=== PATIENT | male | born 1990 | race African-American/Black ===

== ENCOUNTER 2019-10-22 09:39 | Emergency (ER) | payer MEDICAID, OTHER, SELFPAY ==
[~2019-10-22] VITALS: Ht 175.3 cm; Wt 90.9 kg
[2019-10-22] MEDS ORDERED: IBUPROFEN 800 MG TAB PO ONE (11:30)
[2019-10-22] MEDS ORDERED: ACETAMINOPHEN 500 MG TAB PO ONE (11:30)
[2019-10-22 11:40] VITALS: BP 134/81
--- NOTE | 2019-11-19 09:32 | REP ---
RIGHT ANKLE SERIES CLINICAL: Trauma/injury. TECHNIQUE: AP, lateral, bilateral oblique views of the right ankle. FINDINGS: No acute fracture or dislocation. Skeletal structures and joint spaces are intact. Ankle mortise intact. Soft tissues are normal. No subcutaneous emphysema or foreign body. IMPRESSION: No acute fracture or dislocation. MTDD
== END 2019-10-22 11:40 | disposition home or self-care (01) ==
LOC: M ED 09:39
DX: S93.401A Sprain of unspecified ligament of right ankle, initial encounter (principal); W18.40XA Slipping, tripping and stumbling without falling, unspecified, initial encounter; Y93.E6 Activity, residential relocation; Y92.9 Unspecified place or not applicable; Y99.9 Unspecified external cause status

== ENCOUNTER 2019-11-29 11:18 | Emergency (ER) | payer OTHER, SELFPAY ==
[~2019-11-29] VITALS: Ht 175.3 cm; Wt 97.7 kg
[2019-11-29] MEDS ORDERED: NS 1,000 ML IV ONE ×2 (12:00→13:00)
[2019-11-29] MEDS ORDERED: ONDANSETRON 4MG/2ML VIAL IV ONE (12:00)
[2019-11-29 12:07] LABS: BASO % 0.1 % (0.0-1.0); EOS % 0.1 % (0.0-3.0); HEMOGLOBIN 14.9 g/dl (13.5-17.5); LYMPH # 1.3 10^3/uL (1.5-5.0); LYMPH % 8.1 % (24.0-44.0); MEAN CORPUSCULAR HEMOGLOBIN 30.3 pg (27.0-33.0); MEAN CORPUSCULAR HGB CONC 33.9 g/dl (32.0-36.5); MEAN CORPUSCULAR VOLUME 89.6 fl (80.0-96.0); MONO # 0.5 10^3/uL (0.0-0.8); MONO % 3.3 % (0.0-5.0); NEUTROPHILS # 13.6 10^3/uL (1.5-8.5); NEUTROPHILS % 87.9 % (36.0-66.0); PLATELET COUNT, AUTOMATED 286 10^3/uL (150-450); RED BLOOD COUNT 4.91 10^6/uL (4.30-6.10); WHITE BLOOD COUNT 15.5 10^3/uL (4.0-10.0)
[2019-11-29] MEDS ORDERED: ISOVUE-370 76% 100ML VIAL As Ordered ONE (12:23)
[2019-11-29 12:35] LABS: ALBUMIN 4.8 GM/DL (3.2-5.2); BILIRUBIN,DIRECT 0.2 MG/DL (0.0-0.2); TOTAL PROTEIN 8.7 GM/DL (6.4-8.2)
--- NOTE | 2019-11-29 12:58 | REPVR ---
PROCEDURE INFORMATION: Exam: CT Abdomen And Pelvis With Contrast Exam date and time: 11/29/2019 12:19 PM Age: 29 years old Clinical indication: Nausea and vomiting and other: Diarrhea; Abdominal pain; Additional info: Lower abd pain, n/v/d TECHNIQUE: Imaging protocol: Computed tomography of the abdomen and pelvis with intravenous contrast. Radiation optimization: All CT scans at this facility use at least one of these dose optimization techniques: automated exposure control; mA and/or kV adjustment per patient size (includes targeted exams where dose is matched to clinical indication); or iterative reconstruction. Contrast material: ISOVUE 370; Contrast volume: 100 ml; Contrast route: INTRAVENOUS (IV); COMPARISON: No relevant prior studies available. FINDINGS: Liver: Normal. No mass. Gallbladder and bile ducts: Normal. No calcified stones. No ductal dilation. Pancreas: Normal. No ductal dilation. Spleen: Normal. No splenomegaly. Adrenals: Normal. No mass. Kidneys and ureters: Normal. No hydronephrosis. Stomach and bowel: Unremarkable. No obstruction. No mucosal thickening. Appendix: No evidence of appendicitis. Intraperitoneal space: Unremarkable. No free air. No significant fluid collection. Vasculature: Unremarkable. No abdominal aortic aneurysm. Lymph nodes: Unremarkable. No enlarged lymph nodes. Urinary bladder: Unremarkable as visualized. Reproductive: Unremarkable as visualized. Bones/joints: Unremarkable. No acute fracture. Soft tissues: Unremarkable. IMPRESSION: No acute findings. Electronically signed by: Brandy Sampson On 11/29/2019 12:58:12 PM
[2019-11-29] MEDS ORDERED: KETOROLAC 30 MG/ML 1ML VIAL IV ONE (13:00)
[2019-11-29] MEDS ORDERED: KCL 10MEQ/100ML SWI (KRUN) 10 MEQ in IV 1 EA IV ONE (13:00)
[2019-11-29] MEDS ORDERED: METOCLOPRAMIDE INJ 10MG/2ML VIAL (J2765 PER 1) IV ONE (14:45)
[2019-11-29] MEDS ORDERED: DICYCLOMINE INJ 20MG/2ML (J0500) IM ONE (15:45)
[2019-11-29 16:10] VITALS: BP 124/65
[2019-11-29] MEDS ORDERED: ONDA4TAB6 PO (16:35)
== END 2019-11-29 16:39 | disposition home or self-care (01) ==
LOC: M ED 11:18
DX: R11.2 Nausea with vomiting, unspecified (principal); R19.7 Diarrhea, unspecified; R10.9 Unspecified abdominal pain; R51.9 Headache, unspecified
CPT/HCPCS: 74177; 80047; 80076; 83605; 83690; 85025; 96361; 96365; 96372; 96375; 99284; J0500; J1885; J2405; J2765; Q9967

== ENCOUNTER 2020-11-16 10:42 | Inpatient (IN) | payer MEDICAID ==
[~2020-11-16] VITALS: Ht 175.3 cm; Wt 93.1 kg
[~2020-11-16 10:42] MED LIST: ONDA4TAB6 PO
[2020-11-16] MEDS ORDERED: NS 1,000 ML IV ONE ×2 (11:20→14:00)
[2020-11-16] MEDS ORDERED: ONDANSETRON 4MG/2ML VIAL IV ONE (11:20)
[2020-11-16 11:53] LABS: BASO % 0.2 % (0.0-1.0); HEMOGLOBIN 13.8 g/dl (13.5-17.5); LYMPH # 1.3 10^3/uL (1.5-5.0); LYMPH % 7.6 % (24.0-44.0); MEAN CORPUSCULAR HEMOGLOBIN 30.9 pg (27.0-33.0); MEAN CORPUSCULAR HGB CONC 33.7 g/dl (32.0-36.5); MEAN CORPUSCULAR VOLUME 91.7 fl (80.0-96.0); MONO # 0.5 10^3/uL (0.0-0.8); MONO % 3.1 % (2.0-8.0); NEUTROPHILS # 15.1 10^3/uL (1.5-8.5); NEUTROPHILS % 88.7 % (36.0-66.0); PLATELET COUNT, AUTOMATED 225 10^3/uL (150-450); RED BLOOD COUNT 4.47 10^6/uL (4.30-6.10)
[2020-11-16 12:20] LABS: ALBUMIN 4.2 GM/DL (3.2-5.2); ALT/SGPT 23 U/L (12-78); BILIRUBIN,DIRECT 0.2 MG/DL (0.0-0.2); BILIRUBIN,TOTAL 0.8 MG/DL (0.2-1.0); BLOOD UREA NITROGEN 14 MG/DL (7-18); CALCIUM LEVEL 9.2 MG/DL (8.5-10.1); CARBON DIOXIDE LEVEL 27 MEQ/L (21-32); CHLORIDE LEVEL 101 MEQ/L (98-107); CREATININE FOR GFR 1.09 MG/DL (0.70-1.30); GLOMERULAR FILTRATION RATE > 60.0 (>60); GLUCOSE, FASTING 115 MG/DL (70-100); LIPASE 66 U/L (73-393); POTASSIUM SERUM 3.5 MEQ/L (3.5-5.1); SODIUM LEVEL 136 MEQ/L (136-145); TOTAL PROTEIN 7.4 GM/DL (6.4-8.2)
[2020-11-16 12:29] LABS: RSV AMPLIFICATION NEGATIVE (NEGATIVE)
[2020-11-16] MEDS ORDERED: ISOVUE-370 76% 100ML VIAL As Ordered ONE (12:31)
--- NOTE | 2020-11-16 12:53 | REP ---
INDICATION: diffuse abd pain, fever, vomiting. COMPARISON: 11/29/2019 TECHNIQUE: Standard helical technique after the intravenous administration of 100 cc Isovue 370 FINDINGS: The lung bases are clear and unchanged. The liver, gallbladder, spleen, pancreas, adrenal glands, and kidneys are within normal limits. The abdominal aorta and para-aortic regions are within normal limits. There is no evidence of free fluid or free air. There is no evidence of a mass or adenopathy. There is evidence of spiking of the mesentery involving a loop of small bowel in the right upper quadrant. This has developed since the last exam. Bone window technique throughout the examination shows no significant change in appearance of the osseous structures. IMPRESSION: Findings involving a loop of small bowel in the right upper quadrant as described above. This could be secondary to inflammatory bowel disease such as Crohn's disease. This needs to be correlated clinically with appropriate follow-up. <Electronically signed by Richard Ramírez > 11/16/20 [id number]
--- NOTE | 2020-11-16 13:23 | REP ---
INDICATION: cough, fever, n/v. COMPARISON: None. TECHNIQUE: PA and lateral FINDINGS: The superior mediastinal structures are midline. The cardiac silhouette is unremarkable in size, shape, and position. The diaphragmatic surfaces of the lungs are regular, and the costophrenic angles are clear. The pulmonary worthy are clear. The imaged osseous structures are intact. IMPRESSION: There is no acute cardiopulmonary disease. <Electronically signed by Richard Ramírez > 11/16/20 [id number]
[2020-11-16] MEDS ORDERED: DICYCLOMINE INJ 20MG/2ML (J0500) IM ONE (14:25)
[2020-11-16 14:57] LABS: AMPHETAMINES LEVEL URINE NEGATIVE (NEGATIVE); BARBITURATES URINE NEGATIVE (NEGATIVE); BENZODIAZEPINES URINE NEGATIVE (NEGATIVE); CANNABINOIDS URINE POSITIVE (NEGATIVE); COCAINE METABOLITE URINE NEGATIVE (NEGATIVE); METHADONE URINE NEGATIVE (NEGATIVE); OPIATES URINE NEGATIVE (NEGATIVE); PHENCYCLIDINE URINE NEGATIVE (NEGATIVE)
[2020-11-16 16:08] LABS: C REACTIVE PROTEIN QUANTITATIV 0.45 MG/DL (0.00-0.30)
[2020-11-16] MEDS ORDERED: HOME MED LIST COMPLETE! XX SCH (16:10)
[2020-11-16 16:24] LABS: ERYTHROCYTE SEDIMENTATION RATE 7 mm/hr (0-15)
[2020-11-16 17:30] VITALS: BP 157/93
--- NOTE | 2020-11-16 17:56 | HPEPDOC ---
General Date of Admission Nov 16, 2020 at 16:25 Date of Service: Nov 16, 2020 Chief Complaint The patient is a 30-year-old male admitted with a reason for visit of Intractable Abd Pain,Nausea Vomiting And Diarrhea. History of Present Illness Mr. Man is a 30 year old male with marijuana use who presents with intractable nausea, vomiting, and diarrhea. Initially began 4 days ago, it started with nausea and abdominal pain. About 2 days ago, he had fever, nausea with vomiting, persistent abdominal cramping, soft diarrhea without blood. He has not been able to keep any food or liquid's down. He has about 2 episodes of diarrhea in a day. Denies sick contacts, recent antibiotics, or hospital izations. He had this happened before in the past, the last episode a few months ago. Patient admits to marijuana use. On admission, patient has been afebrile. Blood pressure stable and patient is not tachycardic. Patient does have leukocytosis of 17 and lactic acid of 2.1. There is no renal dysfunction. CT abd/pelvis with IV contrast suggest possible inflammatory bowel disease with involvement of the right upper quadrant small bowel. ESR 7 and CRP 0.45. Patient will be admitted for intractable nausea/vomiting and abdominal pain with diarrhea. Home Medications No Active Prescriptions or Reported Meds Allergies Coded Allergies: No Known Allergies (Unverified , 10/22/19) Past Medical History Medical History Denies past medical history Surgical History Denies past surgical history Family History Father has hypertension Social History * Smoker: former Smoker Alcohol: Denies Drugs: marijuana A-FIB/CHADSVASC A-FIB History Current/History of A-Fib/PAF?: No Review of Systems Constitutional: Reports: Fever, Malaise, Fatigue, Other (cold sweats) Eyes: Denies: Vision change ENT: Denies: Sore Throat Skin: Denies: Rash Pulmonary: Denies: Cough Cardiovascular: Denies: Chest Pain Gastrointestinal: Reports: Nausea, Vomiting, Abdominal Pain, Diarrhea Genitourinary: Denies: Dysuria Hematologic: Denies: Bruising Neurological: Denies: Numbness Physical Examination General Exam: Positive: Alert, Cooperative, Mild Distress Eye Exam: Negative: Sclera icteric ENT Exam: Positive: Atraumatic Neck Exam: Positive: Supple Chest Exam: Positive: Clear to auscultation Heart Exam: Positive: Rate Normal, Regular Rhythm Abdomen Exam: Positive: Normal bowel sounds, Soft, Tenderness Extremity Exam: Negative: Edema Neuro Exam: Positive: Normal Speech, Cranial Nerves 3-12 NL Psych Exam: Positive: Mental status NL, Mood NL Vital Signs Vital Signs Date Time Temp Pulse Resp B/P (MAP) Pulse Ox O2 Delivery O2 Flow Rate FiO2 11/16/20 15:45 98.2 71 18 146/90 (108) 99 Room Air Laboratory Data Labs 24H Laboratory Tests 2 11/16/20 11:28: Immature Granulocyte % (Auto) 0.4, Neutrophils (%) (Auto) 88.7H, Lymphocytes (%) (Auto) 7.6L, Monocytes (%) (Auto) 3.1, Eosinophils (%) (Auto) 0.0, Basophils (%) (Auto) 0.2, Neutrophils # (Auto) 15.1H, Lymphocytes # (Auto) 1.3L, Monocytes # (Auto) 0.5, Eosinophils # (Auto) 0.0, Basophils # (Auto) 0.0, Nucleated Red Blood Cells % (auto) 0.0, Erythrocyte Sedimentation Rate 7, Anion Gap 8, Glomerular Filtration Rate > 60.0, Calcium Level 9.2, Total Bilirubin 0.8, Direct Bilirubin 0.2, Aspartate Amino Transf (AST/SGOT) 19, Alanine Ami notransferase (ALT/SGPT) 23, Alkaline Phosphatase 91, C-Reactive Protein, Quantitative 0.45H, Total Protein 7.4, Albumin 4.2, Albumin/Globulin Ratio 1.3, Lipase 66L, Coronavirus (COVID-19)(PCR) NEGATIVE, Influenza Type A (RT-PCR) NEGATIVE, Influenza Type B (RT-PCR) NEGATIVE, Respiratory Syncytial Virus (PCR) NEGATIVE 11/16/20 12:46: Lactic Acid Level 2.1*H 11/16/20 13:39: Urine Color YELLOW, Urine Appearance HAZY, Urine pH 9.0, Urine Specific [place] 1.048, Urine Protein 1+H, Urine Glucose (UA) NEGATIVE, Urine Ketones 2+H, Urine Blood NEGATIVE, Urine Nitrite NEGATIVE, Urine Bilirubin NEGATIVE, Urine Urobilinogen 0.2, Urine Leukocyte Esterase NEGATIVE, Urine WBC (Auto) 0, Urine RBC (Auto) 2, Urine Hyaline Casts (Auto) 0, Urine Bacteria (Auto) NEGATIVE, Urine Squamous Epithelial Cells 0, Urine Calcium Oxalate Cryst (Auto) SMALL, Urine Amorphous Sediment SMALLH, Urine Mucus (Auto) SMALL, Urine Sperm (Auto) , Urine Opiates Screen NEGATIVE, Urine Methadone Screen NEGATIVE, Urine Barbiturates Screen NEGATIVE, Urine Phencyclidine Screen NEGATIVE, Urine Amphetamines Screen NEGATIVE, Urine Benzodiazepines Screen NEGATIVE, Urine Cocaine Metabolite Screen NEGATIVE, Urine Cannabinoids Screen POSITIVEH CBC/BMP Laboratory Tests 11/16/20 11:28 Microbiology Microbiology 11/16/20 Blood Culture, Received Pending 11/16/20 Blood Culture, Received Pending Assessment/Plan Mr. Man is a 30 year old male with marijuana use who presents with intractable nausea, vomiting, and diarrhea. Differential include infectious colitis vs cannabis hyperemesis syndrome vs Crohn's disease. Will order GI panel to look for infectious causes. Will empirically start patient on Zosyn. Will order calprotectin, stool polys, vitamin B12, vitamin D, and iron to work Crohn's disease. Otherwise, provider supportive care with IVF, Bentyl, and antiemetics. Plan / VTE VTE Prophylaxis Ordered?: Yes Plan Plan 1. Intractable nausea vomiting Patient does use marijuana. U tox is positive for cannabis Possibly cannabis hyperemesis syndrome Supportive care Clear liquid diet and IV fluids As needed Zofran IV Protonix 2. Abdominal cramping and diarrhea We will evaluate with GI panel, calprotectin, and stool polys Possibly infectious Empirically started on Zosyn day 1 Bentyl to help with abdominal cramping 3. Marijuana use disorder Supportive care 4. Leukocytosis May be reactive to vomiting versus intra-abdominal infectious source Patient started on antibiotics Monitor CBC 5. DVT prophylaxis SCDs and teds Disposition: Pending clinical improvement SUDHIR DUGAN DO Nov 16, 2020 17:56
[2020-11-16] MEDS: NS 1,000 ML IV SCH (18:43)
[2020-11-16] MEDS: PANTOPRAZOLE 40MG VIAL (C9113 PER 1) IV SCH (18:43)
[2020-11-16] MEDS: PIPERACILLIN/TAZOBACTAM SOD 3.375 GM in D5W MINI-BAG PLUS 50 ML IV SCH ×2 (18:43→23:57)
--- NOTE | 2020-11-16 19:49 | REPVR ---
PROCEDURE INFORMATION: Exam: CT Head Without Contrast Exam date and time: 11/16/2020 6:54 PM Age: 30 years old Clinical indication: Pain; Dizziness; Headache; Additional info: Headache, dizziness, vomiting TECHNIQUE: Imaging protocol: Computed tomography of the head without contrast. Radiation optimization: All CT scans at this facility use at least one of these dose optimization techniques: automated exposure control; mA and/or kV adjustment per patient size (includes targeted exams where dose is matched to clinical indication); or iterative reconstruction. COMPARISON: CT Head without contrast 02/19/2014 1:43 PM FINDINGS: Brain: There is no evidence of intracranial bleed. The de la paz-white differentiation appears preserved. Cerebral ventricles: Normal-appearing ventricles. Paranasal sinuses: Sure there is a 1 cm mucous retention cyst right sphenoid sinus. Paranasal sinuses are otherwise clear. Mastoid air cells: Clear mastoid air cells. There is no evidence of intracranial bleed. Orbital cavity: The orbits appear symmetric. Bones/joints: Unremarkable. No acute fracture. Soft tissues: Unremarkable. IMPRESSION: Normal appearing CT scan of the brain. Electronically signed by: Sumit Wiggins On 11/16/2020 19:49:23 PM
[2020-11-16] MEDS: DICYCLOMINE 10 MG CAP PO SCH ×2 (20:43→23:57)
[2020-11-16] MEDS: ONDANSETRON 4MG/2ML VIAL IV PRN (20:47)
[2020-11-16 22:00] VITALS: BP 153/80
[2020-11-17] MEDS: DICYCLOMINE 10 MG CAP PO SCH ×4 (05:35→23:23)
[2020-11-17] MEDS: PIPERACILLIN/TAZOBACTAM SOD 3.375 GM in D5W MINI-BAG PLUS 50 ML IV SCH ×4 (05:35→23:23)
[2020-11-17 05:38] VITALS: BP 155/92
[2020-11-17] MEDS: NS 1,000 ML IV SCH ×2 (08:41→23:23)
--- NOTE | 2020-11-17 10:04 | IPNPDOC ---
Subjective Date Seen The patient was seen on 11/17/20. Subjective Chief Complaint/HPI Mr. Man is a 30 year old male with marijuana use who presents with intractable nausea, vomiting, and diarrhea. Yesterday patient received Zofran and it has helped. This morning, he tells me he is able to keep small amounts of liquid down. Still has nausea. No bowel movement since yesterday. Objective Physical Examination General Exam: Positive: Alert, Cooperative Eye Exam: Negative: Sclera icteric ENT Exam: Positive: Atraumatic Neck Exam: Positive: Supple Chest Exam: Positive: Clear to auscultation Heart Exam: Positive: Rate Normal, Regular Rhythm Abdomen Exam: Positive: Normal bowel sounds, Soft, Tenderness Extremity Exam: Negative: Edema Neuro Exam: Positive: Normal Speech, Cranial Nerves 3-12 NL Psych Exam: Positive: Mental status NL, Mood NL Assessment /Plan Assessment Mr. Man is a 30 year old male with marijuana use who presents with in tractable nausea, vomiting, and diarrhea. Differential include infectious colitis vs cannabis hyperemesis syndrome vs Crohn's disease. Will order GI panel to look for infectious causes. Will empirically start patient on Zosyn. Will order calprotectin, stool polys, vitamin B12, vitamin D, and iron to work Crohn's disease. Otherwise, provider supportive care with IVF, Bentyl, and antiemetics. Plan/VTE VTE Prophylaxis Ordered?: Yes Plan 1. Intractable nausea vomiting Patient does use marijuana. U tox is positive for cannabis Possibly cannabis hyperemesis syndrome Supportive care Clear liquid diet and IV fluids As needed Zofran IV Protonix 2. Abdominal cramping and diarrhea We will evaluate with GI panel, calprotectin, and stool polys Possibly infectious Empirically started on Zosyn day 2 Bentyl to help with abdominal cramping 3. Marijuana use disorder Supportive care 4. Leukocytosis May be reactive to vomiting versus intra-abdominal infectious source Patient started on antibiotics Monitor CBC 5. DVT prophylaxis SCDs and teds Disposition: Pending clinical improvement VS, I&O, 24H, Fishbone Vital Signs/I&O Vital Signs Date Time Temp Pulse Resp B/P (MAP) Pulse Ox O2 Delivery O2 Flow Rate FiO2 11/17/20 05:38 99.0 57 18 155/92 (113) 98 Room Air I&O- Last 24 Hours up to 6 AM 11/17/20 06:00 Intake Total 2720 ml Output Total 400 ml Balance 2320 ml Laboratory Data 24H LABS Laboratory Tests 2 11/16/20 11:28: Immature Granulocyte % (Auto) 0.4, Neutrophils (%) (Auto) 88.7H, Lymphocytes (%) (Auto) 7.6L, Monocytes (%) (Auto) 3.1, Eosinophils (%) (Auto) 0.0, Basophils (%) (Auto) 0.2, Neutrophils # (Auto) 15.1H, Lymphocytes # (Auto) 1.3L, Monocytes # (Auto) 0.5, Eosinophils # (Auto) 0.0, Basophils # (Auto) 0.0, Nucleated Red Blood Cells % (auto) 0.0, Erythrocyte Sedimentation Rate 7, Anion Gap 8, Glomerular Filtration Rate > 60.0, Calcium Level 9.2, Total Bilirubin 0.8, Direct Bilirubin 0.2, Aspartate Amino Transf (AST/SGOT) 19, Alanine Lopez otransferase (ALT/SGPT) 23, Alkaline Phosphatase 91, C-Reactive Protein, Quantitative 0.45H, Total Protein 7.4, Albumin 4.2, Albumin/Globulin Ratio 1.3, Lipase 66L, Coronavirus (COVID-19)(PCR) NEGATIVE, Influenza Type A (RT-PCR) NEGATIVE, Influenza Type B (RT-PCR) NEGATIVE, Respiratory Syncytial Virus (PCR) NEGATIVE 11/16/20 12:46: Lactic Acid Level 2.1*H 11/16/20 13:39: Urine Color YELLOW, Urine Appearance HAZY, Urine pH 9.0, Urine Specific [place] 1.048, Urine Protein 1+H, Urine Glucose (UA) NEGATIVE, Urine Ketones 2+H, Urine Blood NEGATIVE, Urine Nitrite NEGATIVE, Urine Bilirubin NEGATIVE, Urine Urobilinogen 0.2, Urine Leukocyte Esterase NEGATIVE, Urine WBC (Auto) 0, Urine RBC (Auto) 2, Urine Hyaline Casts (Auto) 0, Urine Bacteria (Auto) NEGATIVE, Urine Squamous Epithelial Cells 0, Urine Calcium Oxalate Cryst (Auto) SMALL, Urine Amorphous Sediment SMALLH, Urine Mucus (Auto) SMALL, Urine Sperm (Auto) , Urine Opiates Screen NEGATIVE, Urine Methadone Screen NEGATIVE, Urine Barbiturates Screen NEGATIVE, Urine Phencyclidine Screen NEGATIVE, Urine Amphetamines Screen NEGATIVE, Urine Benzodiazepines Screen NEGATIVE, Urine Cocaine Metabolite Screen NEGATIVE, Urine Cannabinoids Screen POSITIVEH 11/16/20 18:48: Lactic Acid Followup at 4 Hours 2.0, Iron Level 95 CBC/BMP Laboratory Tests 11/16/20 11:28 Microbiology Microbiology 11/16/20 Blood Culture, Received Pending 11/16/20 Blood Culture, Received Pending SUDHIR DUGAN DO Nov 17, 2020 10:04
[2020-11-17 11:10] LABS: TOTAL 25(OH) VITAMIN D 21.4 NG/ML (30.0-100.0)
[2020-11-17 11:19] LABS: HEMATOCRIT 39.2 % (42.0-52.0); HEMOGLOBIN 13.6 g/dl (13.5-17.5); MEAN CORPUSCULAR HGB CONC 34.7 g/dl (32.0-36.5); MEAN CORPUSCULAR VOLUME 89.3 fl (80.0-96.0); PLATELET COUNT, AUTOMATED 227 10^3/uL (150-450); RED BLOOD COUNT 4.39 10^6/uL (4.30-6.10); WHITE BLOOD COUNT 14.4 10^3/uL (4.0-10.0)
[2020-11-17 12:27] LABS: BLOOD UREA NITROGEN 9 MG/DL (7-18); CALCIUM LEVEL 9.1 MG/DL (8.5-10.1); CARBON DIOXIDE LEVEL 21 MEQ/L (21-32); CHLORIDE LEVEL 105 MEQ/L (98-107); CREATININE FOR GFR 1.11 MG/DL (0.70-1.30); GLOMERULAR FILTRATION RATE > 60.0 (>60); GLUCOSE, FASTING 101 MG/DL (70-100); SODIUM LEVEL 138 MEQ/L (136-145)
[2020-11-17] MEDS: ONDANSETRON 4MG/2ML VIAL IV PRN ×2 (13:11→23:28)
[2020-11-17 14:00] VITALS: BP 152/93
[2020-11-17] MEDS: PANTOPRAZOLE 40MG VIAL (C9113 PER 1) IV SCH (17:34)
[2020-11-17] MEDS: PROMETHAZINE INJ 25 MG/ML VIAL (J2550) IV PRN (18:59)
[2020-11-17 20:35] VITALS: BP 154/80
[2020-11-18] MEDS: PROMETHAZINE INJ 25 MG/ML VIAL (J2550) IV PRN (03:32)
[2020-11-18 05:59] VITALS: BP_SYST 155; BP_SYST 166; BP_DIAS 89; BP_DIAS 97
[2020-11-18 06:06] LABS: HEMATOCRIT 38.1 % (42.0-52.0); HEMOGLOBIN 12.8 g/dl (13.5-17.5); MEAN CORPUSCULAR HEMOGLOBIN 30.8 pg (27.0-33.0); MEAN CORPUSCULAR HGB CONC 33.6 g/dl (32.0-36.5); MEAN CORPUSCULAR VOLUME 91.6 fl (80.0-96.0); PLATELET COUNT, AUTOMATED 209 10^3/uL (150-450); RED BLOOD COUNT 4.16 10^6/uL (4.30-6.10); WHITE BLOOD COUNT 9.8 10^3/uL (4.0-10.0)
[2020-11-18] MEDS: PIPERACILLIN/TAZOBACTAM SOD 3.375 GM in D5W MINI-BAG PLUS 50 ML IV SCH ×3 (06:06→18:03)
[2020-11-18] MEDS: DICYCLOMINE 10 MG CAP PO SCH ×4 (06:06→23:32)
[2020-11-18 06:37] LABS: BLOOD UREA NITROGEN 9 MG/DL (7-18); CALCIUM LEVEL 8.5 MG/DL (8.5-10.1); CARBON DIOXIDE LEVEL 26 MEQ/L (21-32); CHLORIDE LEVEL 106 MEQ/L (98-107); CREATININE FOR GFR 1.05 MG/DL (0.70-1.30); GLOMERULAR FILTRATION RATE > 60.0 (>60); GLUCOSE, FASTING 96 MG/DL (70-100); POTASSIUM SERUM 3.4 MEQ/L (3.5-5.1); SODIUM LEVEL 138 MEQ/L (136-145)
[2020-11-18] MEDS: METOCLOPRAMIDE INJ 10MG/2ML VIAL (J2765 PER 1) IV SCH ×4 (07:30→20:16)
[2020-11-18] MEDS: ONDANSETRON 4MG/2ML VIAL IV PRN (08:16)
[2020-11-18] MEDS ORDERED: NS 1,000 ML IV ONE (08:40)
[2020-11-18] MEDS ORDERED: PROMETHAZINE INJ 25 MG/ML VIAL (J2550) IV SCH (08:40)
[2020-11-18] MEDS ORDERED: diphenhydrAMINE 50MG/ML VIAL (J1200) IV PRN (08:50)
[2020-11-18] MEDS: KETOROLAC 30 MG/ML 1ML VIAL IV SCH ×3 (09:55→20:16)
[2020-11-18] MEDS ORDERED: NEULUMEX 0.1% SUSPENSION 450ML BOTTLE (FORMERLY VOLUMEN) As Ordered ONE (11:36)
[2020-11-18] MEDS ORDERED: GLUCAGON INJ 1MG VIAL As Ordered ONE (12:00)
[2020-11-18] MEDS ORDERED: ISOVUE-370 76% 100ML VIAL As Ordered ONE (12:43)
--- NOTE | 2020-11-18 13:14 | REP ---
INDICATION: abd pain diarrhea small bowel spike in mesentery on ct abd.. COMPARISON: Comparison CT study November 16, 2020. TECHNIQUE: The patient ingested oral Volumen for PO contrast per protocol. 0.6 mg of intravenous glucagon is administered. 100 ml of Isovue 370 is given intravenously for intravenous contrast. Helical scanning is acquired. Arterial phase and delayed phase imaging was acquired. Thick slab coronal and sagittal MIP images are generated. In addition coronal and sagittal multiplanar re-formation images are generated and reviewed along with axial images. FINDINGS: Preliminary digital cd mixer helper radiograph is unremarkable. The liver and the spleen are normal in size homogeneous in texture. No adrenal lesion is seen. No abnormality is noted in the pancreas or the gallbladder. No retroperitoneal mass or adenopathy is seen. The kidneys enhance symmetrically and are morphologically intact. Normal appendix is seen in the right lower quadrant. There is good luminal labeling with oral volume in in the small intestine. There is no evidence of mural thickening or hyperenhancement in the small bowel loops to suggest inflammatory enteritis. No evidence of adenopathy. The mesenteric streakiness described on the recent CT study is again seen mild in degree. Somewhat improved. No free fluid is seen. Delayed acquisition images show no evidence of bowel wall abnormality. There is no evidence of free air or abnormal fluid collection. No bony destructive lesion is seen. SI joints are intact without evidence of ankylosis or erosive change. IMPRESSION: The recently noted mesenteric fat streakiness is again seen, mild in degree and somewhat improved. No other evidence to suggest inflammatory bowel disease. Otherwise negative. <Electronically signed by Elmer Graf > 11/18/20 [id number]
[2020-11-18 14:00] VITALS: BP 146/88
[2020-11-18] MEDS: NS 1,000 ML IV SCH ×3 (16:35→23:32)
--- NOTE | 2020-11-18 17:17 | IPN ---
PROGRESS NOTE DATE: 11/18/2020 SUBJECTIVE: Patient denies fever or chills. Complains of bilateral lower quadrant pain left greater than the right. Patient denies any joint pains, muscle aches, mouth ulcers. No prior history of inflammatory bowel disease, Crohn's or ulcerative colitis. Denies any bright red blood per rectum, melena, black tarry stools. Patient has had 1 episode of diarrhea. GI panel is canceled. Patient had 100.4 temperature yesterday at 20:35. OBJECTIVE: Current temperature 99, T-max 100.4, pulse 60, respiratory rate 18 blood pressure 155/89, 99% on room air. General: Awake, alert, oriented to person, place and time, answering questions appropriately. Lungs: Clear to auscultation, no wheezes, rhonchi or rales. Heart: S1 and S2 sinus rhythm. Abdomen: Soft, tender in the bilateral lower quadrants. No guarding or rebound. Positive bowel sounds. No hepatosplenomegaly. Extremities: No cyanosis, clubbing or pitting edema. LABORATORY DATA: Laboratory data, microbiology reviewed. IMAGING STUDIES: Reviewed. ASSESSMENT: This is a 30-year-old male admitted on 11/16/2020 with intractable nausea, vomiting, abdominal pain with prior history of marijuana use, unable to keep liquids down with 2 episodes of diarrhea. Patient had CT abdomen and pelvis with possible inflammatory bowel disease in the right upper quadrant. Sedimentation rate and CRP were checked. IMPRESSIONS/PLAN: 1. Intractable nausea, vomiting, abdominal pain and cramping: GI panel is pending. Empirically placed on Zosyn day number 2, on a liquid diet, I.V. fluids, antiemetics, Toradol and Protonix. 2. Marijuana use with possible cannabis hyperemesis syndrome. 3. Leukocytosis: May be reactive. Currently on Zosyn empirically. Awaiting GI panel and IBD serology. late entry addendum: enteropathogenic ecoli in GI panel: -dc abx -supportive care, supplement electrolytes and continue ivfluids. MTDD
[2020-11-18] MEDS: PANTOPRAZOLE 40MG VIAL (C9113 PER 1) IV SCH (18:03)
[2020-11-18] MEDS ORDERED: POTASSIUM CHLORIDE 10MEQ SR TABLET PO ONE (19:15)
[2020-11-18 22:00] VITALS: BP 149/89
[2020-11-19] MEDS: KETOROLAC 30 MG/ML 1ML VIAL IV SCH ×2 (03:07→09:00)
[2020-11-19] MEDS: DICYCLOMINE 10 MG CAP PO SCH (05:39)
[2020-11-19] MEDS: NS 1,000 ML IV SCH (05:39)
[2020-11-19 06:00] VITALS: BP 152/88
[2020-11-19 06:14] LABS: HEMATOCRIT 37.1 % (42.0-52.0); HEMOGLOBIN 12.5 g/dl (13.5-17.5); MEAN CORPUSCULAR HEMOGLOBIN 31.1 pg (27.0-33.0); MEAN CORPUSCULAR HGB CONC 33.7 g/dl (32.0-36.5); MEAN CORPUSCULAR VOLUME 92.3 fl (80.0-96.0); PLATELET COUNT, AUTOMATED 200 10^3/uL (150-450); RED BLOOD COUNT 4.02 10^6/uL (4.30-6.10); WHITE BLOOD COUNT 10.5 10^3/uL (4.0-10.0)
[2020-11-19 06:37] LABS: BLOOD UREA NITROGEN 6 MG/DL (7-18); CALCIUM LEVEL 8.5 MG/DL (8.5-10.1); CARBON DIOXIDE LEVEL 26 MEQ/L (21-32); CHLORIDE LEVEL 107 MEQ/L (98-107); CREATININE FOR GFR 0.93 MG/DL (0.70-1.30); GLOMERULAR FILTRATION RATE > 60.0 (>60); GLUCOSE, FASTING 94 MG/DL (70-100); MAGNESIUM LEVEL 2.2 MG/DL (1.8-2.4); POTASSIUM SERUM 3.6 MEQ/L (3.5-5.1); SODIUM LEVEL 139 MEQ/L (136-145)
[2020-11-19] MEDS: METOCLOPRAMIDE INJ 10MG/2ML VIAL (J2765 PER 1) IV SCH (07:46)
[2020-11-19] MEDS ORDERED: NS 1,000 ML IV SCH (08:10)
[2020-11-19] MEDS ORDERED: BACI1CAP PO (08:22)
[2020-11-19] MEDS ORDERED: CIPR-249 PO (08:22)
[2020-11-19] MEDS ORDERED: MORPHINE 30 MG TAB **MSIR PO ONE (08:30)
[2020-11-19] MEDS ORDERED: PILL CUTTER 1 EACH XX PRN (08:50)
--- NOTE | 2020-11-19 08:58 | DSES ---
DISCHARGE SUMMARY DATE OF ADMISSION: 11/16/2020 DATE OF DISCHARGE: 11/19/2020 PRIMARY DISCHARGE DIAGNOSIS: 1. Enteropathogenic E. coli diarrhea. 2. Intractable nausea and vomiting secondary to marijuana use with cyclic vomiting syndrome. 3. Hemodilutional anemia. 4. Hypokalemia. DISCHARGE MEDICATIONS: 1. Cipro 500 b.i.d. for seven days. 2. Bacid one tablet with meals for seven days. HOSPITAL COURSE: A 30-year-old male with a history of marijuana use who presented with intractable nausea and vomiting four days prior to admission, three episodes of loose watery stools at home. Patient was found to have a white count of 17,000, lactic acid of 2, CT of the abdomen and pelvis showed spiking in the mesentery and the small bowel. CT enterography was negative for inflammatory bowel disease, sed rate was 7, CRP 0.45. Dr. Torres, demographic analyst on-call was consulted and did not recommend EGD or colonoscopy. GI panel grew out enteropathic E. coli. Patient was treated with two days of intravenous Zosyn with decreased white count from 17,000 to normal and on discharge is normal to 9.8. Discharged on Cipro as an outpatient. Patient's diet was advanced from NPO to clear liquids and solid diet which he tolerated well. PHYSICAL EXAMINATION: On discharge, temperature was 98.5, pulse 61, sinus, respiratory rate 18, blood pressure 152/88, 99% on room air. General: Awake, alert and oriented x3, answering questions appropriately. Lungs are clear to auscultation. No wheezing, rales or rhonchi. Heart: S1 and S2, sinus rhythm. Abdomen is soft, nontender and nondistended. Normoactive bowel sounds. Extremities: No cyanosis, clubbing or pitting edema. LABORATORY DATA: Microbiology and imaging studies: Please see the chart. TIME SPENT ON DISCHARGE: 30 minutes MTDD
[2020-11-19] MEDS ORDERED: CIPROFLOXACIN 400 MG in IV 1 EA IV SCH (09:00)
[2020-11-19] MEDS ORDERED: MORPHINE 30 MG TAB **MSIR PO PRN (12:00)
[2020-11-20 16:11] LABS: Chitobioside Carbohydrat (ACCA 12 units (0-90); Laminaribioside Carbohyd (ALCA 10 units (0-60); Mannobioside Carbohydrat (AMCA 16 units (0-100); Saccharomyces cerevisiae IgG A 14 units (0-50)
== END 2020-11-19 11:45 | disposition home or self-care (01) | DRG 248 ==
LOC: M ED 10:42 → M ED INP 16:25 → ENRESERV 16:37 → M MS5PR 17:25
PROVIDERS: ADMIT Internal Medicine; ATTEND General Practice
DX: A04.0 Enteropathogenic Escherichia coli infection (principal); E87.6 Hypokalemia; R11.2 Nausea with vomiting, unspecified; F12.90 Cannabis use, unspecified, uncomplicated; D72.829 Elevated white blood cell count, unspecified